=== PATIENT | female | born 1970 | race Caucasian/White ===

== ENCOUNTER 2021-09-20 09:14 | Outpatient (REF) | payer BC, MEDICARE, SELFPAY ==
--- NOTE | ~2021-09-20 | XR_ITS ---
EXAMINATION: XR SACROILIAC JOINTS XR THORACIC SPINE CLINICAL INFORMATION: Back pain. COMPARISON: None TECHNIQUE: 3-view thoracic spine and 4-view sacroiliac joints. FINDINGS: The bony texture of the thoracic spine appears satisfactory. Pedicles are intact. No abnormal paraspinal line bulge. There is marginal spurring present at T5 through T12. The disc spaces are generally maintained. There is minimal scoliosis convex right within the superior thoracic spine. There is no evidence of acute fracture or diastasis of the pelvis. The sacroiliac joints are unremarkable without evidence of narrowing, widening, or abnormal sclerosis. The hip joint spaces appear maintained. There appears to be some mild facet degenerative change right side L5-S1. XR/XR sacroiliac joint min 3V IMPRESSION: Mild degenerative changes, as described. No evidence of acute fracture or destructive lesion of the thoracic spine. No acute fracture, spondylolisthesis, or spondylolysis of the pelvis.
--- NOTE | ~2021-09-20 | XR_ITS ---
EXAMINATION: XR SACROILIAC JOINTS XR THORACIC SPINE CLINICAL INFORMATION: Back pain. COMPARISON: None TECHNIQUE: 3-view thoracic spine and 4-view sacroiliac joints. FINDINGS: The bony texture of the thoracic spine appears satisfactory. Pedicles are intact. No abnormal paraspinal line bulge. There is marginal spurring present at T5 through T12. The disc spaces are generally maintained. There is minimal scoliosis convex right within the superior thoracic spine. There is no evidence of acute fracture or diastasis of the pelvis. The sacroiliac joints are unremarkable without evidence of narrowing, widening, or abnormal sclerosis. The hip joint spaces appear maintained. There appears to be some mild facet degenerative change right side L5-S1. XR/XR thoracic spine 2V IMPRESSION: Mild degenerative changes, as described. No evidence of acute fracture or destructive lesion of the thoracic spine. No acute fracture, spondylolisthesis, or spondylolysis of the pelvis.
== END 2021-09-20 09:15 | disposition home or self-care (01) ==
LOC: HO.XRAY 09:14
PROVIDERS: PCP Physician Assistant Medical; Visit Provider Internal Medicine Rheumatology
DX: M54.50 Low back pain, unspecified (principal); M25.50 Pain in unspecified joint; M54.6 Pain in thoracic spine
CPT/HCPCS: 72070; 72202

== ENCOUNTER 2022-04-24 13:26 | Outpatient (REF) | payer BC, MEDICARE, SELFPAY ==
[2022-04-24 13:54] LABS: MANUAL DIFF FLAG NO
[2022-04-24 14:19] LABS: Basophils Absolute Auto 0.1 X10*3/uL (0.0-0.2); Basophils Percent Auto 0.8 % (0-2); Eosinophils Absolute Auto 0.1 X10*3/uL (0.0-0.4); Eosinophils Percent Auto 1.4 % (0-4); Hematocrit 42.9 % (37.0-47.0); Hemoglobin 15.2 g/dl (12.0-16.0); Imm Gran Abs Auto 0.03 X10*3/uL (0.00-0.03); Imm Gran Pct Auto 0.3 % (0.0-0.4); Lymphocytes Percent Auto 32.4 % (20-40); Mean Corpuscular HGB Conc 35.4 g/dl (31.0-35.0); Mean Corpuscular Hemoglobin 29.1 pg (27.0-33.0); Mean Corpuscular Volume 82.2 fL (80.0-98.0); Mean Platelet Volume 10.3 fL (9.4-12.3); Monocytes Absolute Auto 0.5 X10*3/uL (0.1-1.2); Monocytes Percent Auto 5.7 % (2-11); Neutrophils Absolute Auto 5.5 x10*3/uL (2.0-8.3); Neutrophils Percent Auto 59.4 % (45-73); Platelet Count 226 X10*3/uL (160-400); Red Blood Count 5.22 X10*6/uL (4.20-5.50); White Blood Count 9.3 X10*3/uL (4.8-10.8)
[2022-04-24 14:44] LABS: Alanine Aminotransferase 17 U/L (0-31); Albumin Level 3.9 g/dL (3.5-5.0); Alkaline Phosphatase 100 U/L (39-117); Anion Gap 16 (12-20); Aspartate Amino Transferase 12 U/L (5-31); Bilirubin Total 0.7 mg/dL (0.0-1.0); Blood Urea Nitrogen 11 mg/dL (9-16); C Reactive Protein 1.22 mg/dL (< or = 0.50); Calcium 9.3 mg/dL (8.4-10.2); Carbon Dioxide 22 mmol/L (22-29); Chloride 102 mmol/L (96-108); Estimated Glomerular Filt Rate > 60; Glucose Random 280 mg/dL (60-115); Sodium 136 mmol/L (135-145); Total Protein 6.8 g/dL (6.5-8.0)
[2022-04-24 15:13] LABS: Erythrocyte Sedimentation Rate 7 MM/HR (0-20)
== END 2022-04-24 13:27 | disposition home or self-care (01) ==
LOC: HO.LAB 13:26
PROVIDERS: PCP Internal Medicine; Visit Provider Internal Medicine Rheumatology
DX: Z23 Encounter for immunization (principal); M54.50 Low back pain, unspecified; Z79.899 Other long term (current) drug therapy
CPT/HCPCS: 36415; 80053; 85025; 85652; 86140; 90471; 90686